=== PATIENT | female | born 1970 | race Caucasian/White ===

== ENCOUNTER 2024-04-16 06:23 | Day surgery (SDC) | payer BC ==
[2024-04-16] MEDS ORDERED: Propofol 200 MG/20 ML SDV IV ONE (06:24)
[2024-04-16] MEDS ORDERED: Lidocaine 2% 5 ML SDV IVPUSH ONE (06:24)
[2024-04-16] MEDS ORDERED: Sodium Chloride 0.9% 10 ML Syringe FLUSH PRN (06:30)
[2024-04-16] MEDS: Lactated Ringers 1,000 ML IV SCH (08:25)
[2024-04-16] MEDS: Simethicone Drops 40 MG/0.6 ML 30 ML Bottle ONE (08:34)
[2024-04-16 14:17] VITALS: BP 145/82; PULSE 75
== END 2024-04-16 10:30 | disposition home or self-care (01) ==
LOC: FB.SDS 06:23
PROVIDERS: ATTEND Surgery
DX: K57.30 Diverticulosis of large intestine without perforation or abscess without bleeding (principal); K21.9 Gastro-esophageal reflux disease without esophagitis; J45.909 Unspecified asthma, uncomplicated; E11.9 Type 2 diabetes mellitus without complications; F32.A Depression, unspecified; Z79.899 Other long term (current) drug therapy; Z88.2 Allergy status to sulfonamides
CPT/HCPCS: 45378; A9270; J2704; J7120